=== PATIENT | female | born 1990 | race Caucasian/White ===

== ENCOUNTER 2017-03-25 07:17 | Day surgery (SDC) | payer OTHER ==
[~2017-03-25] VITALS: Ht 165.1 cm; Wt 68.3 kg
[2017-03-25] VITALS (16 sets, daily range): BP systolic 111–139; BP diastolic 61–80; PULSE 58–112; RESP 7–29; Ht 165.1 cm; Wt 68.3 kg
[~2017-03-25 07:17] MED LIST: ACETAMINOPHEN 1000 MG/100 ML IVPB ONE; CEFAZOLIN 2 GM/50 ML (PMX) 50 ML IVPB ONE; CEFAZOLIN 2 GM/50 ML (PMX) 50 ML IVPB SCH; SOD CHLORIDE 0.9% 1,000 ML IV SCH
[2017-03-25] MEDS ORDERED: PRED5TAB50 PO (08:37)
[2017-03-25] MEDS ORDERED: HYDR200T5 PO (08:37)
--- NOTE | 2017-03-25 09:12 | HPN ---
Date/Time of Note Date/Time of Note DATE: 03/25/17 TIME: 09:11 Interval H&P Admission Note Pt. seen H&P reviewed: No system changes KENTON SOTO MD Mar 25, 2017 09:12
[2017-03-25] MEDS ORDERED: BUPIVACAINE 0.25%/EPI (SDV) 30 ML INJ ONE (09:21)
[2017-03-25] MEDS ORDERED: LABETALOL HCL 20MG INJ IV PRN (09:30)
[2017-03-25] MEDS ORDERED: EPHEDrine SULFATE 50 MG/5 ML SYG IV PRN (09:30)
[2017-03-25] MEDS ORDERED: OXYCODONE/ACETAMINOPHEN (5/325) TAB PO PRN ×2 (09:30)
[2017-03-25] MEDS ORDERED: MEPERIDINE 25 MG INJ IV PRN (09:30)
[2017-03-25] MEDS ORDERED: KETOROLAC 30 MG INJ IV PRN (09:30)
[2017-03-25] MEDS ORDERED: ONDANSETRON 4 MG INJ IV PRN ×2 (09:30→11:00)
[2017-03-25] MEDS ORDERED: hydrALAzine 20 MG INJ IV PRN (09:30)
[2017-03-25] MEDS ORDERED: FENTAnyl 50 MCG/ML VIAL IV PRN ×2 (09:30)
[2017-03-25] MEDS ORDERED: DIPHENHYDRAMINE 50 MG INJ IV PRN (09:30)
[2017-03-25] MEDS ORDERED: HYDROmorphONE (0.2 MG/ML) 10ML SYG IV PRN ×2 (09:30)
[2017-03-25] MEDS ORDERED: PROPOFOL 100 ML ONE (09:31)
[2017-03-25] MEDS ORDERED: LIDOCAINE 2% (SDV) 5 ML INJ ONE (09:32)
[2017-03-25] MEDS ORDERED: DEXAMETHASONE 4 MG/ML 1 ML INJ ONE (09:32)
[2017-03-25] MEDS ORDERED: ROCURONIUM 50 MG INJ ONE (09:32)
[2017-03-25] MEDS ORDERED: FENTAnyl 50 MCG/ML VIAL ONE (09:32)
[2017-03-25] MEDS ORDERED: MIDAZOLAM 1 MG/ML 2 ML INJ ONE (09:34)
[2017-03-25] MEDS ORDERED: ONDANSETRON 4 MG INJ ONE (09:55)
[2017-03-25] MEDS ORDERED: HYDROCORTISONE 100 MG INJ ONE (09:57)
[2017-03-25] MEDS ORDERED: KETOROLAC 30 MG INJ ONE (10:37)
--- NOTE | 2017-03-25 10:44 | OPR ---
Date/Time of Note Date/Time of Note DATE: 03/25/17 TIME: 10:40 Operative Report Procedure Date: Mar 25, 2017 Preoperative Diagnosis Cholelithiasis/chronic cholecystitis Postoperative Diagnosis Cholelithiasis/chronic cholecystitis Operation Performed Laparoscopic cholecystectomy Surgeon: KENTON SOTO MD Anesthesia Type: general Anesthesiologist: NATALIA ESTEVES Estimated Blood Loss: minimal Transfusion Required: no Specimens Gallbladder Grafts/Implants: none Complications: no Pt Condition Post Procedure: stable Disposition: PACU Indications The patient is a 26-year-old [female] with a history of lupus and 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 The patient had clinical signs and symptoms of biliary colic and chronic cholecystitis which was confirmed via an ultrasound which showed the presence of gallstones. The patient was scheduled for laparoscopic cholecystectomy; possible open as definitive treatment to prevent further sequelae of gallstone disease which include but are not limited to: Gangrenous cholecystitis, choledocholithiasis, gallstone pancreatitis, ascending cholangitis, etc. All risks and benefits of the procedure including but not limited to: Wound infection, excessive bleeding, common bile duct injury, postoperative biliary leak, retained common bile duct stone, injury to intra- abdominal organs, conversion to open procedure, possible need for subsequent surgeries, etc. were all explained to the patient in full detail. She fully understood and wished to proceed with the procedure. Informed consent was therefore obtained. The patient was cleared by her neurosurgeon prior to surgery. Stress dose of steroids was given prior to the induction of general anesthesia. Operative\Procedure Findings Gallstones. Changes consistent with chronic cholecystitis. Procedure Description The patient was brought to the operating room and placed supine on the operating table. Bilateral sequential compression devices were placed on both lower extremities. A dose of broad-spectrum perioperative intravenous antibiotics was given. After the induction of smooth general endotracheal anesthesia the patient's abdomen was prepped and draped in the standard surgical fashion. After performance of the surgical timeout a [5 mm] incision was made in the inferior umbilicus and a Veress needle was used to access the intra-abdominal cavity atraumatically. Pneumoperitoneum was then obtained and the Veress needle was exchanged for a [5 mm] trocar through which a 5 mm laparoscope was placed. Three further working ports were then placed a [12 mm] port in the sub-xiphoid region and two 5 mm ports in the right upper quadrant. All port sites were anesthetized with 0.25% Marcaine [with epinephrine] prior to incision. There were adhesions of the omentum to the anterior surface of the gallbladder. These were taken down using [place] dissector. Using atraumatic graspers the gallbladder was grasped and retracted superiorly and laterally exposing the area of Carroll's pouch. Dissection was begun in this area using a combination of blunt dissection and hook electrocautery. The cystic duct was identified as it entered straight into the neck of the gallbladder. It was dissected free of surrounding tissues and clipped proximally and distally x 3 and transected using EndoShears. Dissection was then continued posteriorly. A short cystic artery was identified and dissected free of surrounding tissues. It was clipped proximally 1 and transected distally using the hook electrocautery. The gallbladder was then dissected off the liver bed using electrocautery. Once completely free the gallbladder was placed in an Endo Catch bag and withdrawn through the [subxiphoid] port site and passed off the field as specimen. [Hemostasis was then inspected for and noted to be total.] [The abdomen was then irrigated with several liters of warm normal saline and the irrigant returned crystal clear.] [The fascia of the subxiphoid port site was then reapproximated using a Endo-close device.] Pneumoperitoneum was then released and all [remaining] trochars were withdrawn under direct vision. [The subcutaneous tissues were irrigated with more warm normal saline] and [further local anesthesia was applied around the skin of the incision sites.] The skin was then reapproximated using 4-0 Monocryl sutures in subcuticular fashion. The incisions were cleaned and Dermabond was applied to the incisions and the patient was awoken from anesthesia and transported to the recovery room in stable condition. All counts were correct at the end of the case x 2. KENTON SOTO MD Mar 25, 2017 10:44
[2017-03-25] MEDS: FENTAnyl 50 MCG/ML VIAL IV PRN ×3 (10:59→11:13)
[2017-03-25] MEDS: HYDROmorphONE (0.2 MG/ML) 10ML SYG IV PRN ×4 (10:59→11:25)
[2017-03-25] MEDS ORDERED: HYDROCODONE/APAP (5/325) TAB PO PRN ×2 (11:00)
[2017-03-25] MEDS ORDERED: morphine 2 MG INJ IV PRN (11:00)
== END 2017-03-25 13:30 | disposition home or self-care (01) ==
LOC: SDS 07:17
PROVIDERS: ATTEND Surgery
DX: K80.10 Calculus of gallbladder with chronic cholecystitis without obstruction (principal)
CPT/HCPCS: 47562; 84703; 88304; J0131; J1170; J1200; J1720; J1885; J2175; J2250; J2405; J3010; Z7512; Z7610; J1100